=== PATIENT | female | born 1980 | race Caucasian/White ===

== ENCOUNTER 2017-06-07 11:15 | Outpatient (CLI) | payer BC ==
--- NOTE | 2017-06-07 16:38 | Diagnostic Imaging Report ---
Indication: Hypothyroidism Technique: Grayscale and duplex images of the thyroid Comparison: none Findings: Right thyroid lobe measures 3.3 cm length x 1.7 cm AP. Left thyroid lobe measures 3.2 cm length x 0.2 cm AP. Both thyroid lobes demonstrate normal echogenicity. A solitary cystic 3 mm thyroid nodule in the isthmus has no suspicious features. In the absence of clinical risk factors for thyroid cancer, this finding is highly likely benign and no additional imaging or follow-up is recommended. Impression: 3 mm left lobe cystic nodule. Otherwise unremarkable Recommendations for thyroid nodule management based on Benjamin et al., J Am Lindsay Radiol 12:143-50 (2015).
== END 2017-06-07 13:15 | disposition home or self-care (01) ==
LOC: ULS 11:15
DX: E03.9 Hypothyroidism, unspecified (principal); R91.1 Solitary pulmonary nodule
CPT/HCPCS: 76536